=== PATIENT | female | born 1995 | race Two or more races ===

== ENCOUNTER 2017-12-04 13:19 | Emergency (ER) | payer OTHER ==
[2017-12-04 13:31] VITALS: TEMP 97.5
--- NOTE | 2017-12-04 15:02 | EDPHY ---
HPI/HX/ROS/PE/MDM Narrative: CHIEF COMPLAINT: Tingling in both feet HISTORY OF PRESENT ILLNESS: The patient is a 22 y/o female complaining of constant tingling in both of her feet, onset 5 days ago. Last weeks she had mild right-sided lower back pain, but it has since stopped. Today her entire body feels mildly tingly, but the tingling in her feet has worsened. When she walks or has someone touch her feet the tingling becomes exacerbated. No recent trauma. No fever, chills, chest pain, shortness of breath, palpitations, vomiting, diarrhea, urinary complaints, headache, lightheadedness. REVIEW OF SYSTEMS: Aside from elements discussed in the HPI, a comprehensive 10-point review of systems was reviewed and is negative. PAST MEDICAL HISTORY: Denies SOCIAL HISTORY: Student at , non-smoker, originally from [place] VITAL SIGNS: Reviewed by me GENERAL: Well-developed, petite, well-nourished, resting comfortably in no respiratory distress. HEENT: Atraumatic. Eyes: No icterus, no injection. Mouth: moist mucous membranes. No erythema or lesions. Neck: supple with no adenopathy. LUNGS: Clear to auscultation bilaterally, no wheezes, rhonchi or rales. CARDIAC: Regular rate and rhythm, no rubs, murmurs or gallops. ABDOMEN: Soft, nontender, nondistended, bowel sounds normal. BACK: No CVA tenderness. EXTREMITIES: No trauma. No edema. Range of motion is normal throughout. NEURO: Alert and oriented, grossly nonfocal. 5/5 motor strength in lower extremities. SKIN: Warm and dry, no rash. PSYCHIATRIC: Normal mentation, no agitation. Portions of this note were transcribed by a medical staffing coordinator. I personally performed a history, physical exam, medical decision making, and confirmed accuracy of information the transcribed note. ED Course: The patient is a 22 y/o female complaining of constant tingling in both of her feet, onset 5 days ago. On exam she has a non-focal neuro exam with 5/5 strength in her lower extremities. Labs ordered. 650mg PO Tylenol administered. 1608: Patient's laboratory results are normal. 1632: Reassessed patient and discussed laboratory results. She now reports that her symptoms started 5 days ago after her feet became very cold. Her symptoms are consistent with neuropathy, paresthesias, and possibly frostbite. I have referred her to a PCP and a neurologist for her symptoms. Return precautions provided patient is comfortable with this plan. MDM: Differential diagnoses for the patient's symptom complex was considered including but not limited to electrolyte abnormalities, neuropathy, mcgraw nip, frostbite, neuropathic pain. - Data Points Laboratory Results: Laboratory Results 12/04/17 15:22 12/04/17 15:22 Medications Given: Discontinued Medications Acetaminophen (Tylenol) 650 mg PO EDNOW ONE Stop: 12/04/17 15:18 Last Admin: 12/04/17 15:27 Dose: 650 mg General Time Seen by Provider: 12/04/17 14:54 Initial Vital Signs: Initial Vital Signs Temperature (C) 36.4 C 12/04/17 13:27 Heart Rate 98 12/04/17 13:27 Respiratory Rate 17 12/04/17 13:27 Blood Pressure 110/74 12/04/17 13:27 O2 Sat (%) 97 12/04/17 13:27 O2 Delivery Mode Room Air Allergies/Adverse Reactions: No Known Allergies Allergy (Unverified 12/04/17 13:27) Home Medications: Medication Instructions Recorded NK [No Known Home Meds] 12/04/17 Departure - Departure Disposition: Home, Routine, Self-Care Clinical Impression: Paresthesias, Neuropathy Condition: Good Instructions: Frostbite (ED), Peripheral Neuropathy (ED), Paresthesia (ED) Additional Instructions: Follow up with a neurologist in the next week, you have been referred to Dr. Hdez. Follow up with your primary care provider in the next week for unimproved symptoms. Return to the emergency department for worsening pain, swelling, numbness, weakness or other concerns. Referrals: [facility] [Clinic] - As per Instructions Norman Hdez DO [Doctor of Osteopathy] - As per Instructions Report Scribed for: Altagracia Melgar Report Scribed by: Alem Pantoja Date of Report: 12/04/17 Time of Report: 15:02
[2017-12-04] MEDS ORDERED: ACETAMINOPHEN 325 MG TAB PO ONE (15:17)
[2017-12-04 15:31] LABS: PLATELET COUNT 242 10^3/uL (150-400)
[2017-12-04 16:33] VITALS: BP 105/63; PULSE 77; RESP 18; O2SAT 96
== END 2017-12-04 16:49 | disposition home or self-care (01) ==
DX: R20.2 Paresthesia of skin (principal); G62.9 Polyneuropathy, unspecified